=== PATIENT | female | born 1955 | race Caucasian/White ===

== ENCOUNTER 2019-07-05 15:23 | Emergency (ER) | payer MEDICARE ==
[2019-07-05] MEDS ORDERED: HYDROMORPHONE HCL INJ/PF 2 MG/ML AMPULE IV ONE ×2 (16:15→18:25)
--- NOTE | 2019-07-05 16:22 | ER Document Report ---
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 Patient's niece states that she has been having difficulty ambulating and she had a twisting fall onto her left side. Patient is complaining of acute left hip pain, lower back pain in the lumbar region, and left shoulder pain. Patient presents in a wheelchair and she is unable to ambulate. Her chemotherapy sessions were in [place] and they are trying to refer her locally here in [place]. Exam: Somewhat limited in the wheelchair acute point tenderness over the left hip in the area of the greater trochanter, patient with midline tenderness to palpation in the lumbar spine, patient with pain to palpation over the area of the proximal left humerus I have greeted and performed a rapid initial assessment of this patient. A comprehensive ED assessment and evaluation of the patient, analysis of test results and completion of medical decision making process will be conducted by an additional ED providers. - Related Data Allergies/Adverse Reactions: acetaminophen [From Percocet] Allergy (Verified 07/05/19 16:02) aspirin [From Percodan] Allergy (Verified 07/05/19 16:02) oxycodone [From Percodan] Allergy (Verified 07/05/19 16:02) Past Medical History - Social History Frequency of alcohol use: None Drug Abuse: None Physical Exam - Vital signs Vitals: Temp Pulse Resp BP Pulse Ox 98.2 F 111 H 16 176/97 H 100 07/05/19 15:50 07/05/19 15:50 07/05/19 15:50 07/05/19 15:50 07/05/19 15:50 Course - Vital Signs Vital signs: Temp Pulse Resp BP Pulse Ox 98.2 F 111 H 16 176/97 H 100 07/05/19 15:50 07/05/19 15:50 07/05/19 15:50 07/05/19 15:50 07/05/19 15:50
--- NOTE | 2019-07-05 17:40 | RADIOLOGY REPORT (SQ) ---
EXAM DESCRIPTION: CT PELVIS WITHOUT COMPLETED DATE/TIME: 07/05/2019 5:12 pm REASON FOR STUDY: fall, active CA COMPARISON: None. TECHNIQUE: CT scan of the pelvis performed without intravenous or oral contrast. Images reviewed wi th soft tissue and bone windows. Reconstructed coronal and sagittal MPR images reviewed. All images stored on PACS. All CT scanners at this facility use dose modulation, iterative reconstruction, and/or weight based d osing when appropriate to reduce radiation dose to as low as reasonably achievable (ALARA). [facility]: Dose Right [facility]: CareDose [facility]: Dose Right [facility]: Teradose 4D [facility]: Smart TeeBeeDee RADIATION DOSE: CT Rad equipment meets quality standard of care and radiation dose reduction techniq ues were employed. CTDIvol: 42.2 mGy. DLP: 1587 mGy-cm. mGy. LIMITATIONS: None. FINDINGS: PELVIC BONES: No fracture. There is a lytic lesion in the left ischium just below the michelle tabulum. Possible larger lytic lesion in the left ilium. See image 75 series 2. VISUALIZED SPINE: See separate report for CT of the lumbar spine. HIP(S): No acute fracture or dislocation. No worrisome bone lesions. PELVIC SOFT TISSUES: No significant findings. EXTRAPELVIC SOFT TISSUES: No significant findings. OTHER: There is cholelithiasis. Left intrarenal calculi. IMPRESSION: No fracture or other acute finding. Lytic lesions as described. Possible metastases. Cholelithiasis. Left renal calculi. TECHNICAL DOCUMENTATION: JOB ID: [id number] Quality ID # [id number]: Final reports with documentation of one or more dose reduction techniques (e.g., Au tomated exposure control, adjustment of the mA and/or kV according to patient size, use of iterative reconstruction technique) 2010 [employer]- All Rights Reserved Reading location - IP/workstation name: [email or web address]
--- NOTE | 2019-07-05 17:52 | RADIOLOGY REPORT (SQ) ---
EXAM DESCRIPTION: SHOULDER LEFT 2 OR MORE VIEWS COMPLETED DATE/TIME: 07/05/2019 5:23 pm REASON FOR STUDY: fall, active CA COMPARISON: None. NUMBER OF VIEWS: Three views. TECHNIQUE: Internal rotation, external rotation, and Y view images acquired of the left shoulder. LIMITATIONS: None. FINDINGS: MINERALIZATION: Normal. BONES: No acute fracture. There is central lucency with cortical thinning in the proximal humerus. JOINTS: No dislocation. VISUALIZED LUNGS AND RIBS: No pneumothorax. No rib fracture. SOFT TISSUES: No radiopaque foreign body. OTHER: No other significant finding. IMPRESSION: Lytic lesion in the proximal humerus. No fracture or dislocation. TECHNICAL DOCUMENTATION: JOB ID: [id number] [employer]- All Rights Reserved Reading location - IP/workstation name: [email or web address]
--- NOTE | 2019-07-05 18:03 | RADIOLOGY REPORT (SQ) ---
EXAM DESCRIPTION: CT LUMBAR SPINE WITHOUT COMPLETED DATE/TIME: 07/05/2019 5:12 pm REASON FOR STUDY: fall, active CA COMPARISON: None. TECHNIQUE: Axial images acquired through the lumbar spine without intravenous contrast. Images revi ewed with lung, soft tissue and bone windows. Reconstructed coronal and sagittal MPR images reviewed . All images stored on PACS. All CT scanners at this facility use dose modulation, iterative reconstruction, and/or weight based d osing when appropriate to reduce radiation dose to as low as reasonably achievable (ALARA). [facility]: Dose Right [facility]: CareDose [facility]: Dose Right [facility]: Teradose 4D [facility]: Smart FlyClip RADIATION DOSE: mGy. LIMITATIONS: None. FINDINGS: SEGMENTATION: Normal. No transitional anatomy. ALIGNMENT: Grade 1 anterolisthesis of L4 on L5. Left-sided pars defect. VERTEBRAL BODIES: Marked compression changes at T12 with vertebra plana. There is a large lytic defe ct in the the L1 vertebra. Superior endplate compressions are seen at L3. There is some loss of hei ght of 4 on the right. There is a lytic defect at L4 in the vertebral body. There is a lytic defect to the left of the midline in the S1 segment. DISCS: Mild central canal stenosis at L4-5 secondary to the anterolisthesis and mild facet hypertroph y. PEDICLES, TRANSVERSE PROCESSES: No fractures. No dislocation. No acute findings. FACETS, POSTERIOR ELEMENTS: Pars defect at L4 on the left. Mild hypertrophic facet changes in the lo wer are lumbar spine. HARDWARE: None in the spine. VISUALIZED RIBS: No fractures. SOFT TISSUES: No significant or acute finding in adjacent soft tissues. OTHER: No other significant finding. IMPRESSION: 1. There are compression changes at multiple levels as described. These do not appear particularly acute. There no comparison images. 2. Anterolisthesis of L4 on L5 with left pars defect. 3. There are some lytic defects in some of the vertebral bodies concerning for metastatic disease. TECHNICAL DOCUMENTATION: JOB ID: [id number] Quality ID # [id number]: Final reports with documentation of one or more dose reduction techniques (e.g., Au tomated exposure control, adjustment of the mA and/or kV according to patient size, use of iterative reconstruction technique) 2010 [employer]- All Rights Reserved Reading location - IP/workstation name: [email or web address]
[2019-07-05 18:07] LABS: ABSOLUTE EOSINOPHILS # (AUTO) 0.1 10^3/uL (0.0-0.6); ABSOLUTE LYMPHOCYTES (AUTO) 1.3 10^3/uL (0.5-4.7); ABSOLUTE MONOCYTES (AUTO) 0.8 10^3/uL (0.1-1.4); ABSOLUTE NEUT (AUTO) 3.9 10^3/uL (1.7-8.2); BASOPHILS % (AUTO) 0.6 % (0-2); EOSINOPHILS % (AUTO) 2.4 % (0-6); HEMOGLOBIN 13.2 g/dL (12.0-15.5); LYMPHOCYTES % (AUTO) 20.6 % (13-45); MEAN CORPUSCULAR HEMOGLOBIN 24.7 pg (27.0-33.4); MEAN CORPUSCULAR HGB CONC 31.5 g/dL (32.0-36.0); MEAN CORPUSCULAR VOLUME 78 fl (80-97); MONOCYTES % (AUTO) 13.7 % (3-13); PLATELET COUNT 122 10^3/uL (150-450); RED BLOOD COUNT 5.36 10^6/uL (3.72-5.28); RED CELL DISTRIBUTION WIDTH 20.6 % (11.5-14.0); SEGMENTED NEUTROPHILS % (AUTO) 62.7 % (42-78); TOTAL CELLS COUNTED % (AUTO) 100 %; WHITE BLOOD COUNT 6.2 10^3/uL (4.0-10.5)
[2019-07-05 18:26] LABS: ALBUMIN 3.8 g/dL (3.5-5.0); ALKALINE PHOSPHATASE 61 U/L (38-126); ANION GAP 8 (5-19); ASPARTATE AMINO TRANSFERASE 22 U/L (14-36); BILIRUBIN,DIRECT 0.1 mg/dL (0.0-0.4); BLOOD UREA NITROGEN 9 mg/dL (7-20); CALCIUM 9.2 mg/dL (8.4-10.2); CARBON DIOXIDE 26 mmol/L (22-30); CHLORIDE 109 mmol/L (98-107); GLUCOSE 122 mg/dL (75-110); POTASSIUM 4.2 mmol/L (3.6-5.0); TOTAL PROTEIN 6.4 g/dL (6.3-8.2)
--- NOTE | 2019-07-05 19:59 | ER Document Report ---
ED General - General Chief Complaint: Fall Stated Complaint: FALL, RIGHT SIDE PAIN Time Seen by Provider: 07/05/19 16:01 Primary Care Provider: BERTO FRANZ FNP [Primary Care Provider] - Follow up as needed - [facility] Notes: Patient is a 64-year-old female with cancer in her bones throughout and history of hypertension who presents with sister with complaint of soreness to her left arm, low back, and somewhat the left hip status post fall last night at 3 AM. Patient states that she was walking to go to the bathroom when she lost her balance and fell into the wall then slid down it trying to be careful. Patient states that she did not hit her head or lose consciousness. Patient states that she was unable to contact her sister who came and helped her. Sister states that she has had chemotherapy that day and usually does not ambulate or walk at all because of weakness after having chemo the first day. Patient states that she otherwise feels well and is eating and drinking without difficulty. She is urinating normally and having normal bowel movements. Patient is on narcotics at home for her cancer pain otherwise. She is otherwise acting baseline per sister. Denies any headache, fever, head injury, neck pain, changes in vision/speech/mentation/hearing, URI, sore throat, chest pain, palpitations, syncope, cough, shortness of breath, wheeze, dyspnea, abdominal pain, nausea/vomiting/diarrhea, urinary retention, dysuria, hematuria, loss of control of bowel or bladder, numbness/tingling, saddle anesthesia, muscle paralysis, or rash. - Related Data Allergies/Adverse Reactions: acetaminophen [From Percocet] Allergy (Verified 07/05/19 16:02) aspirin [From Percodan] Allergy (Verified 07/05/19 16:02) oxycodone [From Percodan] Allergy (Verified 07/05/19 16:02) Past Medical History - Social History Smoking Status: Never Smoker Frequency of alcohol use: None Drug Abuse: None Family History: Reviewed & Not Pertinent Patient has suicidal ideation: No Patient has homicidal ideation: No Review of Systems - Review of Systems -: Yes All other systems reviewed and negative Physical Exam - Vital signs Vitals: Temp Pulse Resp BP Pulse Ox 98.2 F 111 H 16 176/97 H 100 07/05/19 15:50 07/05/19 15:50 07/05/19 15:50 07/05/19 15:50 07/05/19 15:50 - Notes Notes: PHYSICAL EXAMINATION: GENERAL: Well-appearing, well-nourished and in no acute distress. A&Ox4. Answers questions appropriately. HEAD: Atraumatic, normocephalic. Non-tender. No de la garza sign EYES: Pupils equal round and reactive to light, extraocular movements intact, sclera anicteric, conjunctiva are normal. No raccoon eyes/entrapment ENT: EAC clear b/l. TM's intact b/l without erythema, fluid, or perforation. Nares patent and without discharge. oropharynx clear without exudates. No tonsilar hypertrophy or erythema. Moist mucous membranes. No sinus tenderness. No hemotympanum/CSF discharge. NECK: Normal range of motion, supple without lymphadenopathy. No rigidity. No midline tenderness. Chest: No flail chest. equal rise/fall. Non-tender LUNGS: Breath sounds clear to auscultation bilaterally and equal. No wheezes rales or rhonchi. HEART: Regular rate and rhythm ABDOMEN: Soft, nontender, nondistended abdomen. No guarding, no rebound. No masses appreciated. Normal bowel sounds present. No CVA tenderness bilaterally. no ecchymosis. Musculoskeletal: Arms b/l: FROM. Strength 4+/5 equal. N/V intact distal. + mild tenderness proximal humerus. No other UE tenderness. No ecchymosis, deformity, or erythema noted. LE's b/l: + mild tenderness left lateral hip area. No significant tenderness to the knees b/l. FROM at the hip/knees. Strength 4+/5 bilateral. N/V intact distal. Pt able to ambulate and weight-bear for us in the room. Back: FROM to passive/active. Strength 5+/5. + bilateral lower back tenderness and mildly to midline. No other bony tenderness or ecchymosis. SLR negative b/l. Extremities: No cyanosis, clubbing, or edema b/l. Peripheral pulses 2+. Capillary refill less than 2 seconds. NEUROLOGICAL: NIH 0. GCS 15. Cranial nerves grossly intact. Normal speech. Normal sensory, motor exams. Reflexes 2+ b/l. WESLEY's negative. Pronator drift negative. Heel/pfeiffer, finger/nose wnl. PSYCH: Normal mood, normal affect. SKIN: Warm, Dry, normal turgor, no rashes or lesions noted. Course - Re-evaluation Re-evalutation: 07/05/19 20:50 Patient is an afebrile, well-hydrated, 64-year-old female who presents with left shoulder pain, low back pain, left hip pain status post mechanical fall. Mechanism of action was not severe as patient fell into the wall and then slid down not hitting her head or losing consciousness. Patient has been alert and oriented. She has been acting behaving normally per sister. Vitals are currently acceptable without significant tachycardia, tachypnea, or hypoxia. PE is otherwise unremarkable for any obvious focal neurological deficits, neurovascular compromise, obvious tendon/leg rupture, obvious fract ure/dislocation. CT scan of the pelvis, L-spine, and x-rays with left shoulder were unremarkable for acute pathology. There is no lytic lesions and chronic appearing compression deformities of the spine. Patient was assisted and was able to ambulate/weight-bear more than 4 steps in the exam room. Sister will be staying with her tonight and they will be following up with her family doctor in the morning. Patient states that she is feeling better and would like to go home. Patient does not want any further testing performed at this time which for the time being I am in agreement with based on her current H&P. Strict return precautions reviewed. Low suspicion for any other systemic or emergent condition at this time. Patient to monitor her symptoms. Recheck with your PCM tomorrow. Return to the ED with any other worsening/concerning symptoms. Consider consult with orthopedics. Patient and sister in agreement. Pt otherwise demanding to go home. - Vital Signs Vital signs: Temp Pulse Resp BP Pulse Ox 97.9 F 72 16 154/109 H 96 07/05/19 20:21 07/05/19 20:21 07/05/19 15:50 07/05/19 20:21 07/05/19 20:21 - Laboratory Result Diagrams: 07/05/19 17:45 07/05/19 17:45 Laboratory results interpreted by me: 07/05/19 07/05/19 17:45 17:45 RBC 5.36 H MCV 78 L MCH 24.7 L MCHC 31.5 L RDW 20.6 H Plt Count 122 L [place] % (Auto) 13.7 H Chloride 109 H Glucose 122 H Discharge - Discharge Clinical Impression: Left hip pain Fall Qualifiers: Encounter type: initial encounter Qualified Code(s): W19.XXXA - Unspecified fall, initial encounter Left shoulder pain Qualifiers: Chronicity: acute Qualified Code(s): M25.512 - Pain in left shoulder Low back pain Qualifiers: Chronicity: acute Back pain laterality: bilateral Sciatica presence: without sciatica Qualified Code(s): M54.5 - Low back pain Condition: Stable Disposition: HOME, SELF-CARE Additional Instructions: Rest, Ice, Compression, Elevation Tylenol/ibuprofen as needed Light stretches daily Strength exercises as able Moist heat and massage may help F/u with your PCP tomorrow for a recheck Consider consult(s) with Orthopedics/physical therapy for ongoing/worsening symptoms Return to the ED with any worsening symptoms and/or development of fever, headache, chest pain, palpitations, syncope, shortness of breath, trouble breathing, abdominal pain, n/v/d, muscle weakness/paralysis, numbness/tingling, swelling, redness, or other worsening symptoms that are concerning to you. Forms: Elevated Blood Pressure Referrals: BERTO FRANZ FNP [Primary Care Provider] - Follow up as needed CAESAR ROSEN JR, DO [ACTIVE PROVISIONAL STAFF] - Follow up as needed
[2019-07-05 20:26] VITALS: BP 154/109
== END 2019-07-05 21:00 | disposition home or self-care (01) ==
LOC: ER 15:23
DX: M54.5 Low back pain (principal); M25.552 Pain in left hip; M25.512 Pain in left shoulder; W22.01XA Walked into wall, initial encounter; W18.39XA Other fall on same level, initial encounter; Y93.89 Activity, other specified; I10 Essential (primary) hypertension; G89.3 Neoplasm related pain (acute) (chronic); C41.9 Malignant neoplasm of bone and articular cartilage, unspecified; Z79.899 Other long term (current) drug therapy; Z88.8 Allergy status to other drugs, medicaments and biological substances; Z88.5 Allergy status to narcotic agent
CPT/HCPCS: 36415; 85025; 80053; 73030; 72131; 72192; J1170